=== PATIENT | female | born 1950 | race Caucasian/White ===

== ENCOUNTER 2016-07-01 09:50 | Day surgery (SDC) | payer MEDICARE, BC ==
[~2016-07-01] VITALS: Ht 156.2 cm; Wt 59.9 kg
[~2016-07-01 09:50] MED LIST: ATENOLOL50 MG PO; ATIVAN1 M1 PO; BABY ASPIRIN81 MG PO; CALCIUM & VITAMIN D3; CALCIUM 600+D3 PO; CHLORTHALIDONE25 MG PO; FLUZONE SPLT1 M1 IM; GLUCOSAMIN PO; GLUCOSAMINE1 TA1 OR; HYDROCO/APAP1 TA9 PO; KEFLEX500 MG PO; LISINOPRIL5 MG PO; LORAZEPAM1 MG PO; MULTIVITAMIN PO; NEXIUM40 M1 PO; POLYTRIM OU; ROBITUSSIN AC10 ML PO
[2016-07-01 11:53] VITALS: BP 133/73
== END 2016-07-01 12:15 | disposition home or self-care (01) ==
LOC: ENDO 09:50 → ORM 12:15 → ENDO 12:30
PROVIDERS: ATTEND Internal Medicine Gastroenterology
PROC: 0DBE8ZX Excision of Large Intestine, Via Natural or Artificial Opening Endoscopic, Diagnostic (ICD-10-PCS; principal; 2016-07-01)
PROC: 0DBN8ZX Excision of Sigmoid Colon, Via Natural or Artificial Opening Endoscopic, Diagnostic (ICD-10-PCS; 2016-07-01)
DX: R19.7 Diarrhea, unspecified (principal); D12.5 Benign neoplasm of sigmoid colon; K64.4 Residual hemorrhoidal skin tags; K57.30 Diverticulosis of large intestine without perforation or abscess without bleeding; K64.8 Other hemorrhoids; K21.9 Gastro-esophageal reflux disease without esophagitis; I10 Essential (primary) hypertension

== ENCOUNTER 2018-03-20 14:32 | Emergency (ER) | payer MEDICARE, BC ==
[~2018-03-20] VITALS: Ht 156.2 cm; Wt 59.0 kg
[2018-03-20] MEDS ORDERED: METOPROL TAR25 MG PO (15:07)
[2018-03-20] MEDS ORDERED: PERCOCET 10/31 COMBO PO (17:19)
[2018-03-20] MEDS ORDERED: IBUPROFEN600 MG PO (17:19)
[2018-03-20 17:39] VITALS: BP 137/73
== END 2018-03-20 17:56 | disposition home or self-care (01) ==
LOC: ED 14:32
DX: S82.092A Other fracture of left patella, initial encounter for closed fracture (principal); I10 Essential (primary) hypertension; K21.9 Gastro-esophageal reflux disease without esophagitis; W01.0XXA Fall on same level from slipping, tripping and stumbling without subsequent striking against object, initial encounter; Y92.009 Unspecified place in unspecified non-institutional (private) residence as the place of occurrence of the external cause
CPT/HCPCS: L1830

== ENCOUNTER 2019-07-19 13:35 | Observation (INO) | payer MEDICARE, BC ==
[~2019-07-19] VITALS: Ht 157.5 cm; Wt 61.2 kg
[~2019-07-19 13:35] MED LIST changes: +IBUPROFEN600 MG PO; +METOPROL TAR25 MG PO; +PERCOCET 10/31 COMBO PO
--- NOTE | 2019-07-19 13:39 | NUR ---
Pt to room # 8 for bedside triage
--- NOTE | 2019-07-19 13:45 | NUR ---
BEDSIDE RECTAL EXAM PERFORMED BY MD WITH VISIBLE POSITIVE RESULTS, [facility] PROVIDED AND MD DISCUSSED PLAN OF CARE.
[2019-07-19 14:19] LABS: HEMATOCRIT 36.9 % (37.0-47.0); HEMOGLOBIN 12.4 g/dl (12.0-16.0); IMMATURE GRANULOCYTES 0.2 % (0.0-5.0); MEAN CORPUSCULAR HGB 29.2 pG CALC (26.0-32.0); MEAN CORPUSCULAR HGB CONC 33.6 g/dL CAL (32.0-36.0); NEUT# 3.34 thou/uL (2.00-7.15); RED BLOOD COUNT 4.24 mill/uL (4.20-5.60); RED CELL DISTRI WIDTH 13.1 % (11.5-15.5)
--- NOTE | 2019-07-19 14:21 | NUR ---
PT RESTING, OFFERS NO NEW COMPLAINTS, IV ACCESS OBTAINED AND LBA WORK DRAWN. CALL MARION WITHIN REACH.
[2019-07-19 14:35] LABS: ALBUMIN 4.2 g/dL (3.2-5.0); ALKALINE PHOSPHATASE 60 u/l (38-126); ANION GAP 13 (6-22 (CALC)); BUN 17 mg/dL (8-23); BUN/CREATININE RATIO 30 (12-20 (CALC)); CARBON DIOXIDE 25 mmol/l (22-30); CHLORIDE 103 mmol/l (95-108); CREATININE 0.6 mg/dL (0.5-1.0); GFR > 60 ML/MIN (>=60 (CALC)); GFR FOR AFR.AMER. > 60 ML/MIN (>=60 (CALC)); LIPASE 147 u/l (23-300); SGOT/AST 22 u/l (9-36); SODIUM 136 mmol/l (137-146); TOTAL PROTEIN 7.2 g/dL (6.3-8.2)
[2019-07-19 14:43] LABS: GFR > 60 ML/MIN (>=60 (CALC)); GFR FOR AFR.AMER. > 60 ML/MIN (>=60 (CALC))
--- NOTE | 2019-07-19 14:52 | NUR ---
PT RESTING NO NEW COMAPLTINS, AWARE OF PENDING RESULTS
[2019-07-19] MEDS ORDERED: CLOPIDOGREL75 MG PO (15:12)
[2019-07-19] MEDS ORDERED: ALPRAZOLAM ER0.5 MG PO (15:12)
[2019-07-19] MEDS ORDERED: GLUCOSAMI11 PO (15:13)
--- NOTE | 2019-07-19 15:14 | NUR ---
PT AMBULATED TO BATHROOM, URINE SPECIMEN PROVIDED, BACK TO BED ALL MONITORING EQUIPMENT REAPPLIED
[2019-07-19 15:30] LABS: URINE BILIRUBIN - DIPSTICK NEGATIVE (NEGATIVE); URINE BLOOD DIPSTICK MODERATE (NEGATIVE); URINE COLOR YELLOW; URINE GLUCOSE - DIPSTICK NEGATIVE (NEGATIVE); URINE KETONE NEGATIVE (NEGATIVE); URINE LEUK ESTERASE NEGATIVE (NEGATIVE); URINE NITRITE - DIPSTICK NEGATIVE (Negative); URINE PH 5.5 (4.5-8.0); URINE PROTEIN - DIPSTICK NEGATIVE (NEG-TRACE); URINE SPECIFIC GRAVITY 1.015; URINE UROBILINOGEN - DIPSTICK 0.2 E.U./dL (0.2)
[2019-07-19 15:48] LABS: URINE SQUAMOUS EPITHELIAL CELL FEW EPI/hpf (0-FEW)
--- NOTE | 2019-07-19 16:14 | NUR ---
PT RESTING OFFERS NO NEW COMPLAINTS, AWARE OF AWAITING RADIOLOGY RESULTS
--- NOTE | 2019-07-19 16:49 | NUR ---
PT RESTING CONTINUES TO DENY PAIN, STATES AGAIN SHE HOPES TO GO HOME TODAY. AWARE MD WILL DISCUSS PLAN OF CARE WITH HER.
--- NOTE | 2019-07-19 17:24 | NUR ---
AWARE OF PENDING ADMISSION, CALL INTO FLOOR TO GIVE REPORT
--- NOTE | 2019-07-19 17:30 | NUR ---
REPORT CALLED TO HELEN LINTON ON MED SURG
[2019-07-19 17:40] VITALS: BP 148/79
--- NOTE | 2019-07-19 17:43 | NUR ---
PT TRANSPORTED TO MED SURG ROOM 271 VIA WHEELCHAIR, ALL BELONGINGS WITH PATIENT, AND TELE BOX #[id number] ON PT WELL. NURSE HELEN AWARE OF PT ARRIVAL.
--- NOTE | 2019-07-19 17:50 | NUR ---
PT ARRIVED TO [place] VIA ACCOMPANIED BY SIMÓN EDWARDS. A&O X3. NO DISTRESS NOTED. STEADY GAIT NOTED. RECTUM NOTED TO HAVE SOME BRIGHT RED BLOOD, WITH NO VISIBLE WOUNDS OR HEMORRHOIDS. PT REPORTED TO HAVE HAD A BM THIS MORNING AND NOTED BLOOD. PER PT SHE HAS STARTED TAKING PLAVIX. DENIES ANY ABD PAIN AT THIS TIME. DIANA DAYANARA REFUSED. ORIENTED PT TO ROOM. ASSESSMENT COMPLETED. DISCUSSED POC. CALL LIGHT IN REACH. CONTINUE TO MONITOR.
--- NOTE | 2019-07-19 18:45 | NUR ---
PER KIRSTIN START NS @125 ML/HR. TYPE AND SCREEN PT AND HAVE 2 UNITS OF RBC'S ON STAND BY IN CASE PT NEEDS TRANSFUSION. ORDERS READ BACK.
[2019-07-19 19:12] VITALS: BP 153/68
--- NOTE | 2019-07-19 19:15 | NUR ---
REPORT FROM HELEN LINTON. PT NOTED RESTING IN BED WATCHING TV. ALERT AND ORIENTED. NO APPARENT DISTRESS. PT DENIES ANY PAIN OR DISCOMFORT. IV SITE APPEARS HEALTHY WITH IVF AND PROTONIX GTT INFUSING. EVENT DECORATOR IN PLACE. DISCUSSED POC. PT VERBALIZED UNDERSTANDING. CALL LIGHT WITHIN REACH. WILL CONTINUE TO MONITOR.
[2019-07-19 23:15] VITALS: BP 133/83
--- NOTE | 2019-07-19 23:48 | NUR ---
PT RESTING IN BED. NO APPARENT DISTRESS NOTED. PT DENIES ANY PAIN OR DISCOMFORT. PT REMAINS NPO. CALL LIGHT WITHIN REACH. WILL CONTINUE TO MONITOR.
--- NOTE | 2019-07-20 03:00 | NUR ---
PT RESTING IN BED WITH EYES CLOSED. NO APPARENT DISTRESS NOTED. CALL LIGHT WITHIN REACH. WILL CONTINUE TO MONITOR.
[2019-07-20 04:00] VITALS: BP 109/64
[2019-07-20 04:53] LABS: HEMATOCRIT 28.1 % (37.0-47.0); HEMOGLOBIN 9.5 g/dl (12.0-16.0)
[2019-07-20 07:46] VITALS: BP 119/46
--- NOTE | 2019-07-20 07:46 | NUR ---
PT SITTING IN BED. A&O X3. NO DISTRESS NOTED. PT REPORTS TO HAVE HAD SOME BM THAT CONTAINED A LOT OF BLOOD THROUGHOUT THE NIGHT. BM NOTED THIS MORNING WITH BRIGHT RED BLOOD AND CLOTS NOTED. PT DENIES ANY OTHER NEEDS AT THIS TIME. ASSESSMENT COMPLETED. DISCUSSED POC. CALL LIGHT IN REACH. CONTINUE TO MONITOR.
--- NOTE | 2019-07-20 09:31 | NUR ---
DR GALLO AT BEDSIDE DISCUSSING POC
--- NOTE | 2019-07-20 09:42 | NUR ---
OR CONSENT OBTAINED
--- NOTE | 2019-07-20 10:30 | NUR ---
PT TAKEN DOWN TO OR VIA STRETCHER ACCOMPANIED BY MALIHA EDWARDS.
--- NOTE | 2019-07-20 11:46 | NUR ---
SPOKE WITH [facility] [employer] REGARDING TRANSFER OF PATIENT PER DR. FULTON AND DR. GALLO FOR GI CONSULT. ACCEPTING PHYSICIAN DR. NEVAREZ.
[2019-07-20 11:55] VITALS: BP 128/70
--- NOTE | 2019-07-20 12:00 | NUR ---
PT ARRIVED TO [place] VIA STRETCHER ACCOMPANIED BY MALIHA EDWARDS. PT STABLE. A&O. REPORTS TO FEEL A LITTLE LIGHT HEADED. ASSISTED PT TO THE BATHROOM WITH SLOW STEADY GAIT NOTED. NO OTHER NEEDS AT THIS TIME. INFORMED PT OF TRANSFER DECISION MADE BY DR GALLO AND DR FULTON. PT VERBALIZED UNDERSTANDING
[2019-07-20 12:10] VITALS: BP 137/51
--- NOTE | 2019-07-20 12:10 | NUR ---
[facility] PROVIDED [facility]OM ASSIGNMENT TO ROOM 209. [facility] NOTIFIED; MELVIN GAVE ETA OF 2.5 HOURS.
[2019-07-20 12:28] LABS: HEMATOCRIT 27.6 % (37.0-47.0); HEMOGLOBIN 9.3 g/dl (12.0-16.0)
--- NOTE | 2019-07-20 12:54 | NUR ---
TRANSFER CONSENT OBTAINED
--- NOTE | 2019-07-20 13:40 | NUR ---
PT EATING LUNCH WITH DAUGHTER AT BEDSIDE. NO NEEDS AT THIS TIME. CALL LIGHT IN REACH. CONTINUE TO MONITOR.
[2019-07-20 15:00] VITALS: BP 142/73
--- NOTE | 2019-07-20 15:01 | NUR ---
PER MELVIN FROM [facility], 2 HR DELAY WAS EXPECTED DUE TO NEW TRANSPORT NEEDED FOR ANOTHER PT. PT UPDATED ON WAIT TIME.
--- NOTE | 2019-07-20 17:50 | NUR ---
KEN GUERRA UPDATED ON NEW ETA
--- NOTE | 2019-07-20 18:01 | NUR ---
PER MIREYA NEW ETA OF 30-40 MINS
--- NOTE | 2019-07-20 19:05 | NUR ---
PT TRANSPORTED VIA STRETCHER WITH [facility]. PT STABLE UPON DEPARTURE.
--- NOTE | 2019-07-20 19:18 | NUR ---
REPORT GIVEN TO LUIZ EDWARDS AT [facility]
== END 2019-07-20 19:05 ==
LOC: ED 13:35 → ED-I 16:40 → ED 16:57 → ED-I 16:58 → MS2 17:10
PROVIDERS: Family Medicine; ADMIT Internal Medicine; ATTEND Internal Medicine
PROC: 0DJD8ZZ Inspection of Lower Intestinal Tract, Via Natural or Artificial Opening Endoscopic (ICD-10-PCS; principal; 2019-07-20)
PROC: 0DJ08ZZ Inspection of Upper Intestinal Tract, Via Natural or Artificial Opening Endoscopic (ICD-10-PCS; 2019-07-20)
DX: K92.1 Melena (principal); K57.30 Diverticulosis of large intestine without perforation or abscess without bleeding; K44.9 Diaphragmatic hernia without obstruction or gangrene; I65.21 Occlusion and stenosis of right carotid artery; I10 Essential (primary) hypertension; Z79.02 Long term (current) use of antithrombotics/antiplatelets; Z11.59 Encounter for screening for other viral diseases
CPT/HCPCS: G0378; Q9967; S0164

== ENCOUNTER 2023-09-02 14:11 | Emergency (ER) | payer MEDICARE, BC ==
[~2023-09-02] VITALS: Ht 157.5 cm; Wt 63.0 kg
[2023-09-02] VITALS (10 sets, daily range): BP systolic 116–141; BP diastolic 63–76
[~2023-09-02 14:11] MED LIST changes: +ALPRAZOLAM ER0.5 MG PO; +CLOPIDOGREL75 MG PO; +GLUCOSAMI11 PO
[2023-09-02] MEDS ORDERED: ONDANSETRON HCl 4 MG/2 ML SDV IV ONE (14:35)
[2023-09-02] MEDS ORDERED: KETOROLAC TROMETHAMINE 30 MG/ML SDV IV ONE (14:35)
[2023-09-02 15:01] LABS: BASO% 0.2 % (0-3); EOS% 0.2 % (0-8); IMMATURE GRANULOCYTES 0.2 % (0.0-5.0); LYMPH% 8.4 % (15-41); MEAN CELL VOLUME 89.6 fL CALC (80.0-100.0); MEAN CORPUSCULAR HGB 30.5 pG CALC (26.0-32.0); MEAN CORPUSCULAR HGB CONC 34.1 g/dL CAL (32.0-36.0); MONO% 9.6 % (2-13); NEUT# 4.08 thou/uL (2.00-7.15); NEUT% 81.4 % (42-76); RED BLOOD COUNT 5.01 mill/uL (4.20-5.60); RED CELL DISTRI WIDTH 12.7 % (11.5-15.5)
[2023-09-02 15:05] LABS: HEMATOCRIT 44.9 % (37.0-47.0); HEMOGLOBIN 15.3 g/dl (12.0-16.0)
[2023-09-02 15:10] LABS: CREATININE 0.8 mg/dL (0.5-1.0); POTASSIUM 4.3 mmol/l (3.5-5.1)
[2023-09-02 16:54] LABS: URINE BLOOD DIPSTICK Negative (NEGATIVE); URINE GLUCOSE - DIPSTICK Negative (NEGATIVE); URINE KETONE 15 mg/dL (NEGATIVE); URINE NITRITE - DIPSTICK Negative (Negative); URINE PH 5.5 (4.5-8.0); URINE PROTEIN - DIPSTICK Negative (NEG-TRACE); URINE UROBILINOGEN - DIPSTICK 0.2 E.U./dL (0.2)
[2023-09-02 16:55] LABS: URINE COLOR Yellow; URINE LEUK ESTERASE Small (NEGATIVE)
[2023-09-02 17:02] LABS: URINE SQUAMOUS EPITHELIAL CELL FEW EPI/hpf (0-FEW)
[2023-09-02] MEDS ORDERED: MELOXICAM7.5 MG PO (17:26)
[2023-09-02] MEDS ORDERED: MACRODANTIN100 MG PO (17:26)
== END 2023-09-02 18:38 | disposition home or self-care (01) ==
LOC: ED 14:11
PROVIDERS: Family Medicine
DX: M54.50 Low back pain, unspecified (principal); G89.29 Other chronic pain; N39.0 Urinary tract infection, site not specified; I10 Essential (primary) hypertension; E11.9 Type 2 diabetes mellitus without complications; K21.9 Gastro-esophageal reflux disease without esophagitis